=== PATIENT | female | born 1960 | race Caucasian/White ===

== ENCOUNTER → 2019-04-03 | Outpatient (CLI) | payer BC ==
[~2019-04-03] MED LIST: ALLEGRA ALLERG180 M1 PO; AMLO5 PO; AMOX250 PO; Crestor20 MG PO; DOCSEN PO; Desyrel50 MG; GLIP2.5ER PO; HYDR1TAB94 PO; Hair, Skin & N1 EACH PO; Hydrochlorothia25 MG PO; IBUP400 PO; KHEDEZLA50 MG PO; LISI20 PO; LORA.5 PO; METF500 PO; METF500C PO; Multiple Vitam1 EAC1 PO; Oxycodone-Apap1 EAC3 PO; PANT40 PO; POTCHL20ER PO; SACC250C PO; VIIBRYD40 MG PO; XARELTO15 MG PO
== END | disposition home or self-care (01) ==
LOC: PLD 09:55 → LAB SHORT 09:55
DX: B35.1 Tinea unguium (principal); L60.2 Onychogryphosis
CPT/HCPCS: 88304; 88312

== ENCOUNTER 2020-11-02 09:50 | Emergency (ER) | payer BC ==
[~2020-11-02] VITALS: Ht 162.6 cm; Wt 72.6 kg
[2020-11-02] MEDS ORDERED: Lisinopril2.5 MG (10:14)
[2020-11-02] MEDS ORDERED: VICTOZA 2-0.6 MG/0.1 SQ (10:15)
[2020-11-02 10:19] LABS: BASOPHILS ABSOLUTE AUTO 0.02 K/mm3 (0.00-0.23); BASOPHILS PERCENT AUTO 0 % (0-2); EOSINOPHILS ABSOLUTE AUTO 0.01 K/mm3 (0.00-0.68); EOSINOPHILS PERCENT AUTO 0 % (0-6); Hematocrit 41.1 % (33.0-51.0); Hemoglobin 13.6 g/dL (11.5-16.0); IMMATURE GRAN ABSOLUTE AUTO 0.03 K/mm3 (0.00-0.10); IMMATURE GRAN PERCENT AUTO 0 % (0-1); LYMPHOCYTES ABSOLUTE AUTO 0.43 K/mm3 (0.84-5.20); LYMPHOCYTES PERCENT AUTO 4 % (21-46); MONOCYTES ABSOLUTE AUTO 0.66 K/mm3 (0.16-1.47); MONOCYTES PERCENT AUTO 7 % (4-13); Mean Corpuscular HGB 29.6 pg (26.0-34.0); Mean Corpuscular HGB Conc 33.1 g/dL (31.5-36.5); Mean Corpuscular Volume 90 fL (80-100); Mean Platelet Volume 8.8 fL (9.1-12.4); NEUTROPHILS ABSOLUTE AUTO 8.86 K/mm3 (1.96-9.15); NEUTROPHILS PERCENT AUTO 89 % (41-73); Platelet Count 179 K/mm3 (150-400); RDW Coefficient Variation 12.6 % (11.7-14.2); RDW Standard Deviation 41.2 fL (35.1-46.3); Red Blood Cell Count 4.59 M/mm3 (3.80-5.20); White Blood Cell Count 10.01 K/mm3 (4.00-11.30)
[2020-11-02 10:37] LABS: Alanine Aminotransfer (ALT/SGP 27 U/L (12-78); Albumin, Blood 3.7 g/dL (3.4-5.0); Alk Phos 86 U/L (50-136); Anion Gap 8 mmol/L (6-16); Aspartate Aminotrans (AST/SGOT 19 U/L (12-37); Bilirubin, Total 0.5 mg/dL (0.1-1.0); Blood Urea Nitrogen 16 mg/dL (8-24); Bun/Creatinine Ratio 22.9 (12.0-20.0); CO2, Blood 23 mmol/L (21-32); Calcium, Blood 9.3 mg/dL (8.5-10.1); Chloride, Blood 108 mmol/L (98-108); Globulin, Blood 3.7 g/dL (2.2-4.0); Glomerular Filtration Rate >60 (60-); Glucose, Blood 175 mg/dL (70-99); Potassium, Blood 3.8 mmol/L (3.5-5.5); Sodium, Blood 139 mmol/L (136-145); Total Protein, Blood 7.4 g/dL (6.4-8.2)
[2020-11-02 10:44] LABS: Source, Urine Clean Catch
[2020-11-02 10:51] LABS: Appearance, Urine Clear (Clear); Bilirubin, Urine Neg (Neg); Blood, Urine 5+ (Neg); Color, Urine Yellow (P-Yellow); Glucose Qualitative, Urine Neg (Neg); Ketones, Urine Neg (Neg); Leukocyte Esterase, Urine 3+ (Neg); Nitrite, Urine Pos (Neg); Protein, Urine 1+ (Neg); Specific Gravity, Urine 1.015 (1.003-1.022); Urobilinogen, Urine NORM (Normal)
[2020-11-02 11:02] LABS: Bacteria Mod /hpf; Squamous Epithelial Cells Few /hpf (Few)
[2020-11-02] MEDS ORDERED: CIPR500 PO (11:31)
== END 2020-11-02 13:13 | disposition home or self-care (01) ==
LOC: ER 09:50
PROVIDERS: Emergency Medicine
DX: N10 Acute pyelonephritis (principal); I10 Essential (primary) hypertension; E11.9 Type 2 diabetes mellitus without complications; Z79.899 Other long term (current) drug therapy; Z91.013 Allergy to seafood; Z88.2 Allergy status to sulfonamides; Z91.041 Radiographic dye allergy status; Z88.1 Allergy status to other antibiotic agents; Z86.718 Personal history of other venous thrombosis and embolism
CPT/HCPCS: 36415; 80053; 81001; 82947; 83605; 85025; 87077; 87086; 87186; 96361; 96365; 99283-25; J0696; J7030

== ENCOUNTER → 2021-12-11 | Outpatient (CLI) | payer BC ==
[~2021-12-11] MED LIST changes: +CIPR500 PO; +Lisinopril2.5 MG; +VICTOZA 2-0.6 MG/0.1 SQ
[2021-12-12 06:11] LABS: BASO (ABSOLUTE) 0.1 x10E3/uL (0.0-0.2); BASOS 1 % (Not Estab.); EOS 2 % (Not Estab.); EOS (ABSOLUTE) 0.1 x10E3/uL (0.0-0.4); HEMATOCRIT 42.8 % (34.0-46.6); HEMOGLOBIN 14.3 g/dL (11.1-15.9); IMMATURE GRANULOCYTES 0 % (Not Estab.); LYMPHS 28 % (Not Estab.); LYMPHS (ABSOLUTE) 1.6 x10E3/uL (0.7-3.1); MCH 29.7 pg (26.6-33.0); MCHC 33.4 g/dL (31.5-35.7); MCV 89 fL (79-97); MONOCYTES 9 % (Not Estab.); MONOCYTES(ABSOLUTE) 0.5 x10E3/uL (0.1-0.9); NEUTROPHILS 60 % (Not Estab.); NEUTROPHILS (ABSOLUTE) 3.5 x10E3/uL (1.4-7.0); PLATELETS 230 x10E3/uL (150-450); RBC 4.82 x10E6/uL (3.77-5.28); RDW 12.8 % (11.7-15.4); WBC 5.8 x10E3/uL (3.4-10.8)
[2021-12-12 07:11] LABS: ESTIM. AVG GLU (EAG) 131 mg/dL (.); HEMOGLOBIN A1C 6.2 % (4.8-5.6)
[2021-12-12 15:12] LABS: A/G RATIO 1.8 (1.2-2.2); ALKALINE PHOSPHATASE, S 81 IU/L (44-121); ALT (SGPT) 20 IU/L (0-32); AST (SGOT) 17 IU/L (0-40); BILIRUBIN, TOTAL <0.2 mg/dL (0.0-1.2); BUN 25 mg/dL (8-27); BUN/CREATININE RATIO 30 (12-28); CALCIUM, SERUM 9.8 mg/dL (8.7-10.3); CARBON DIOXIDE, TOTAL 23 mmol/L (20-29); CHLORIDE, SERUM 102 mmol/L (96-106); CHOLESTEROL, TOTAL 298 mg/dL (100-199); CREATININE, SERUM 0.82 mg/dL (0.57-1.00); EGFR IF AFRICN AM 89 (>59); EGFR IF NONAFRICN AM 77 (>59); GLOBULIN, TOTAL 2.4 g/dL (1.5-4.5); GLUCOSE, SERUM 131 mg/dL (65-99); HDL CHOLESTEROL 64 mg/dL (>39); LDL CHOLESTEROL CALC 205 mg/dL (0-99); POTASSIUM, SERUM 4.5 mmol/L (3.5-5.2); PROTEIN, TOTAL, SERUM 6.8 g/dL (6.0-8.5); SODIUM, SERUM 138 mmol/L (134-144); TRIGLYCERIDES 159 mg/dL (0-149); VLDL CHOLESTEROL CAL 29 mg/dL (5-40)
== END | disposition home or self-care (01) ==
LOC: LAB SHORT 09:21
PROVIDERS: Internal Medicine
DX: E78.49 Other hyperlipidemia (principal); E11.9 Type 2 diabetes mellitus without complications; I10 Essential (primary) hypertension; R53.83 Other fatigue
CPT/HCPCS: 36415; 80053; 80061; 83036; 84439; 84443; 84481; 85025

== ENCOUNTER 2024-11-21 10:53 | Emergency (ER) | payer OTHER ==
[~2024-11-21] VITALS: Ht 154.9 cm; Wt 70.3 kg
[2024-11-21 11:19] LABS: BASOPHILS ABSOLUTE AUTO 0.02 K/mm3 (0.00-0.23); BASOPHILS PERCENT AUTO 0 % (0-2); EOSINOPHILS ABSOLUTE AUTO 0.09 K/mm3 (0.00-0.68); EOSINOPHILS PERCENT AUTO 2 % (0-6); IMMATURE GRAN ABSOLUTE AUTO 0.01 K/mm3 (0.00-0.10); IMMATURE GRAN PERCENT AUTO 0 % (0-1); LYMPHOCYTES ABSOLUTE AUTO 0.98 K/mm3 (0.84-5.20); LYMPHOCYTES PERCENT AUTO 21 % (21-46); MONOCYTES ABSOLUTE AUTO 0.57 K/mm3 (0.16-1.47); MONOCYTES PERCENT AUTO 12 % (4-13); Mean Corpuscular HGB Conc 32.6 g/dL (31.5-36.5); Mean Corpuscular Volume 92 fL (80-100); Mean Platelet Volume 8.7 fL (9.1-12.4); NEUTROPHILS ABSOLUTE AUTO 3.08 K/mm3 (1.96-9.15); NEUTROPHILS PERCENT AUTO 65 % (41-73); Platelet Count 201 K/mm3 (150-400); RDW Coefficient Variation 12.6 % (11.7-14.2); White Blood Cell Count 4.75 K/mm3 (4.00-11.30)
[2024-11-21 11:55] LABS: Albumin, Blood 3.9 g/dL (3.4-5.0); Albumin/Globulin Ratio 1.1 (0.8-1.8); Bilirubin, Total 0.5 mg/dL (0.1-1.0); Bun/Creatinine Ratio 18.7 (12.0-20.0); Calcium, Blood 9.5 mg/dL (8.5-10.1); Creatinine, Blood 0.7 mg/dL (0.40-1.00); Globulin, Blood 3.7 g/dL (2.2-4.0); Potassium, Blood 4.6 mmol/L (3.5-5.5); Total Protein, Blood 7.6 g/dL (6.4-8.2)
[2024-11-21 13:45] LABS: Source, Urine Clean Catch
[2024-11-21 13:50] LABS: Appearance, Urine Hazy (Clear); Bilirubin, Urine Neg (Neg); Blood, Urine 5+ (Neg); Color, Urine Yellow (P-Yellow); Glucose Qualitative, Urine Neg (Neg); Ketones, Urine Neg (Neg); Leukocyte Esterase, Urine 3+ (Neg); Nitrite, Urine Neg (Neg); Protein, Urine Neg (Neg); Specific Gravity, Urine 1.015 (1.003-1.022); Urobilinogen, Urine NORM (Normal)
[2024-11-21 14:00] LABS: Bacteria Many /hpf; Squamous Epithelial Cells Mod /hpf (Few); Transitional Epithelial Cells Rare /hpf (0-Rare); White Blood Cells, Urine 25-50 /hpf (0-5)
[2024-11-21] MEDS ORDERED: Ketorolac Tromethamine 15mg Vial IV ONE ×4 (14:40→22:10)
[2024-11-21 15:24] LABS: Source, Urine Clean Catch
[2024-11-21 15:38] LABS: Appearance, Urine Clear (Clear); Bilirubin, Urine Neg (Neg); Blood, Urine 5+ (Neg); Color, Urine Yellow (P-Yellow); Glucose Qualitative, Urine Neg (Neg); Ketones, Urine Neg (Neg); Leukocyte Esterase, Urine 3+ (Neg); Nitrite, Urine Neg (Neg); Protein, Urine Neg (Neg); Urobilinogen, Urine NORM (Normal)
[2024-11-21 15:54] LABS: Bacteria Mod /hpf; Red Blood Cells, Urine 50-100 /hpf (0-2); Squamous Epithelial Cells Few /hpf (Few); White Blood Cells, Urine 25-50 /hpf (0-5)
[2024-11-21] MEDS ORDERED: NS 1,000 ML IV SCH ×2 (16:35→17:25)
[2024-11-21] MEDS ORDERED: CefTRIAXone Sodium 1,000 MG in NS 100 ML IV ONE (16:35)
[2024-11-21 21:54] LABS: CORONAVIRUS COVID-19 AG Negative (NEGATIVE); INFLUENZA A AG Negative (NEGATIVE); INFLUENZA B AG Negative (NEGATIVE)
[2024-11-21 22:30] VITALS: BP 148/87
[2024-11-21] MEDS ORDERED: PredniSONE 20 MG Tab PO ONE (22:35)
== END 2024-11-21 23:41 | disposition short-term general hospital (02) ==
LOC: ER 10:53
PROVIDERS: Emergency Medicine; Physician Assistant
DX: N13.6 Pyonephrosis (principal); E11.9 Type 2 diabetes mellitus without complications; I10 Essential (primary) hypertension; Z79.899 Other long term (current) drug therapy; Z88.2 Allergy status to sulfonamides; Z88.8 Allergy status to other drugs, medicaments and biological substances; Z88.1 Allergy status to other antibiotic agents; Z91.013 Allergy to seafood
CPT/HCPCS: 51701; 74176; 80053; 81001; 83690; 85025; 87077; 87086; 87186; 87428-QW; 96365-59; 96366-59; 96375-59; 96376-59; 99285-25; J0696; J1885; J7030

== ENCOUNTER 2025-01-16 12:04 | Day surgery (SDC) | payer OTHER ==
[~2025-01-16] VITALS: Ht 154.9 cm; Wt 70.9 kg
[~2025-01-16 12:04] MED LIST changes: +Lactated Ringer's 1,000 ML IV ONE; +propofoL 50 ML IV ONE
[2025-01-16] MEDS ORDERED: HYDCHL25 (12:27)
[2025-01-16] MEDS ORDERED: COQMAX UBIQUIN100 MG (12:52)
[2025-01-16] MEDS ORDERED: EZET10 (12:53)
[2025-01-16] MEDS ORDERED: VAGIFEM10 MCG (12:53)
[2025-01-16] MEDS ORDERED: Lactated Ringer's 1,000 ML IV ONE (13:26)
[2025-01-16 14:26] VITALS: BP 128/82
== END 2025-01-16 14:28 | disposition home or self-care (01) ==
LOC: ORSCSDS 12:04
PROVIDERS: Surgery
PROC: 0DBM8ZX Excision of Descending Colon, Via Natural or Artificial Opening Endoscopic, Diagnostic (ICD-10-PCS; principal; 2025-01-16 13:45)
DX: Z12.11 Encounter for screening for malignant neoplasm of colon (principal); D12.4 Benign neoplasm of descending colon; J45.909 Unspecified asthma, uncomplicated; E78.5 Hyperlipidemia, unspecified; I10 Essential (primary) hypertension; G47.33 Obstructive sleep apnea (adult) (pediatric); Z85.42 Personal history of malignant neoplasm of other parts of uterus; Z85.89 Personal history of malignant neoplasm of other organs and systems; Z79.899 Other long term (current) drug therapy
CPT/HCPCS: 82947; 88305; J2704; J7120

== ENCOUNTER → 2025-03-20 | Outpatient (CLI) | payer OTHER ==
[~2025-03-20] MED LIST changes: +COQMAX UBIQUIN100 MG; +EZET10; +HYDCHL25; -Lactated Ringer's 1,000 ML IV ONE; +VAGIFEM10 MCG; -propofoL 50 ML IV ONE
[2025-03-26 14:43] LABS: CALCIUM, URINE - PER 24H 374 mg/d (100-250); CALCIUM, URINE - PER VOLUME 10.7 mg/dL; CHLORIDE, URINE - PER 24H 210 mmol/d (140-250); CHLORIDE, URINE - PER VOLUME 60 mmol/L; CITRIC ACID, URINE - PER 24H 427 mg/d (320-1240); CITRIC ACID,URINE - PER VOLUME 122 mg/L; CREATININE, URINE - PER 24H 1330 mg/d (500-1400); CREATININE, URINE - PER VOLUME 38 mg/dL; HOURS COLLECTED 24 hr; MAGNESIUM, URINE - PER VOLUME 1.4 mg/dL; MAGNESIUM, URINE PER 24H 49 mg/d (12-199); OXALATE, URINE - PER 24H 28 mg/d (13-40); OXALATE, URINE - PER VOLUME 8 mg/L; PH, URINE 5.84 (5.00-7.50); PHOSPHORUS, URINE - PER 24H 1085 mg/d (400-1300); PHOSPHORUS, URINE - PER VOLUME 31 mg/dL; POTASSIUM, URINE - PER 24H 60 mmol/d (25-125); POTASSIUM, URINE - PER VOLUME 17 mmol/L; SODIUM, URINE - PER 24H 217 mmol/d (51-286); SODIUM, URINE - PER VOLUME 62 mmol/L; SULFATE, URINE - PER 24H < 5 mmol/d (6-30); SULFATE, URINE - PER VOLUME <5 mmol/L; TOTAL VOLUME 3500 mL; URIC ACID, URINE - PER 24H 592 mg/d (250-750); URIC ACID, URINE - PER VOLUME 16.9 mg/dL; URINE SUPERSATURATION INTERP Normal; URINE SUPERSATURATION, CAHPO4 1.07; URINE SUPERSATURATION, CAOX 4.24; URINE SUPERSATURATION, UA CALC 0.36
== END ==
LOC: LAB 11:40 → LAB SHORT 11:40
PROVIDERS: Physician Assistant
DX: N20.0 Calculus of kidney (principal)
CPT/HCPCS: 81003; 82131; 82140; 82340; 82436; 82507; 82570; 83735; 83935; 83945; 84105; 84133; 84300; 84392; 84560

== ENCOUNTER 2025-07-07 11:06 | Emergency (ER) | payer OTHER ==
[~2025-07-07] VITALS: Ht 154.9 cm; Wt 71.7 kg
[2025-07-07 12:45] VITALS: BP 155/81
[2025-07-07] MEDS ORDERED: OxyCODONE 5 mg/Acetamin 325 mg TABLET PO ONE (13:00)
[2025-07-07] MEDS ORDERED: Ketorolac Tromethamine 30mg Vial IM ONE (13:00)
[2025-07-07] MEDS ORDERED: ONDA4ODT MM (13:33)
[2025-07-07] MEDS ORDERED: Percocet 5-3251 EACH PO (13:33)
== END 2025-07-07 13:47 | disposition home or self-care (01) ==
LOC: ER 11:06
DX: S06.0XAA Concussion with loss of consciousness status unknown, initial encounter (principal); S93.401A Sprain of unspecified ligament of right ankle, initial encounter; E11.9 Type 2 diabetes mellitus without complications; I10 Essential (primary) hypertension; V80.010A Animal-rider injured by fall from or being thrown from horse in noncollision accident, initial encounter; Z79.899 Other long term (current) drug therapy; Z88.2 Allergy status to sulfonamides; Z91.041 Radiographic dye allergy status; Z91.013 Allergy to seafood; Z88.8 Allergy status to other drugs, medicaments and biological substances
CPT/HCPCS: 70450; 73610; 96372; 99284-25; A9270; J1885